=== PATIENT | male | born 1960 | race Caucasian/White ===

== ENCOUNTER 2022-01-29 10:22 | Inpatient (IN) ==
[2022-01-29 15:07] LABS: ABS Basophils 0.1 10^3/ul (0-0.2); ABS Eosinophils 0.1 10^3/ul (0-0.6); ABS Lymphocytes 2.1 10^3/ul (1.0-4.8); ABS Neutrophils 10.3 10^3/ul (1.5-7.7); Eosinophil % 0.7 %; Hematocrit 37 % (42-52); Hemoglobin 12.7 g/dL (14.0-18.0); Lymphocyte % 14.4 %; Mean Corpuscular HGB Conc 35 g/dL (31-36); Mean Corpuscular Hemoglobin 33 pg (27-31); Mean Corpuscular Volume 94 fL (80-94); Mean Platelet Volume 8.3 fL (7.4-10.4); Platelet Count 274 10^3/uL (150-450); Red Blood Count 3.88 10^6 /uL (4.18-5.48); Red Cell Distribution Width 13 % (10-15); White Blood Count 14.6 10^3/uL (3.5-10.8)
[2022-01-29 15:17] LABS: Urine Appearance Cloudy; Urine Bilirubin Negative (Negative); Urine Blood 3+ (Negative); Urine Color Amber; Urine Glucose Negative (Negative); Urine Ketones Trace (Negative); Urine Nitrite Negative (Negative); Urine Protein 2+(100 mg/dL) (Negative); Urine Specific Gravity 1.021 (1.002-1.030); Urine Urobilinogen Positive (Negative)
[2022-01-29 15:38] LABS: Urine Bacteria Absent (Absent); Urine Red Blood Cell 3+(>10/hpf) (Absent); Urine White Blood Cell 1+(6-10/hpf) (Absent)
[2022-01-29 16:40] LABS: Albumin 4.2 g/dL (3.2-5.2); Albumin/Globulin Ratio 1.4 (1-3); C Reactive Protein 166.9 mg/L (<8.01); Calcium 9.6 mg/dL (8.6-10.3); Globulin 3.1 g/dL (2-4); Potassium 3.9 mmol/L (3.5-5.0); Total Bilirubin 1.5 mg/dL (0.2-1.0); Total Protein 7.3 g/dL (6.4-8.9); eGFR CKD-EPI 106.2 (>60)
[2022-01-29] MEDS ORDERED: Iohexol 300 (CONTRAST) 10 ML SDV IV ONE (17:08)
[2022-01-29] MEDS ORDERED: Piperacillin/Tazobac ADVAN 3.375 GM in NS 0.9% 100 ml BAG 100 ML IV ONE (18:40)
[2022-01-29] MEDS ORDERED: Ondansetron 4 mg VIAL 2 MG/ML 2 ml VIAL IV PRN (19:26)
[2022-01-29] MEDS ORDERED: HYDROmorphone 0.5 MG/0.5 ML SYRINGE IV SLOW PU PRN (19:37)
[2022-01-30] MEDS: NS 0.9% 1000 ml BAG 1,000 ML IV SCH ×3 (00:15→19:49)
[2022-01-30] MEDS: Piperacillin/Tazobac ADVAN 3.375 GM in NS 0.9% 100 ml BAG 100 ML IV SCH ×3 (00:30→17:28)
[2022-01-30] MEDS ORDERED: Thiamine 100 MG/ML 2 ml VIAL (200 mg) IM ONE (01:43)
[2022-01-30] MEDS: Multivitamins/Minerals TAB PO SCH ×2 (02:25→08:18)
[2022-01-30 06:47] LABS: ABS Basophils 0.1 10^3/ul (0-0.2); ABS Eosinophils 0.1 10^3/ul (0-0.6); ABS Lymphocytes 2.2 10^3/ul (1.0-4.8); ABS Monocytes 1.5 10^3/ul (0-0.8); ABS Neutrophils 6.7 10^3/ul (1.5-7.7); Eosinophil % 1.3 %; Hematocrit 32 % (42-52); Hemoglobin 11.6 g/dL (14.0-18.0); Lymphocyte % 20.6 %; Mean Corpuscular HGB Conc 36 g/dL (31-36); Mean Corpuscular Hemoglobin 33 pg (27-31); Mean Corpuscular Volume 93 fL (80-94); Mean Platelet Volume 8.9 fL (7.4-10.4); Platelet Count 226 10^3/uL (150-450); Red Blood Count 3.48 10^6 /uL (4.18-5.48); Red Cell Distribution Width 13 % (10-15); White Blood Count 10.5 10^3/uL (3.5-10.8)
[2022-01-30 07:04] LABS: Calcium 8.9 mg/dL (8.6-10.3); eGFR CKD-EPI 104.8 (>60)
[2022-01-30] MEDS: KCL 20 MEQ/100 ML IVPREMIX 20 MEQ/100 ML BAG IV SCH ×3 (09:07→13:41)
[2022-01-31] MEDS: Piperacillin/Tazobac ADVAN 3.375 GM in NS 0.9% 100 ml BAG 100 ML IV SCH ×3 (01:05→19:56)
[2022-01-31] MEDS: NS 0.9% 1000 ml BAG 1,000 ML IV SCH (03:49)
[2022-01-31 06:35] LABS: ABS Basophils 0.1 10^3/ul (0-0.2); ABS Eosinophils 0.1 10^3/ul (0-0.6); ABS Lymphocytes 1.9 10^3/ul (1.0-4.8); ABS Monocytes 1.4 10^3/ul (0-0.8); ABS Neutrophils 9.2 10^3/ul (1.5-7.7); Eosinophil % 1.2 %; Hematocrit 31 % (42-52); Hemoglobin 10.7 g/dL (14.0-18.0); Lymphocyte % 15.1 %; Mean Corpuscular HGB Conc 34 g/dL (31-36); Mean Corpuscular Hemoglobin 32 pg (27-31); Mean Corpuscular Volume 95 fL (80-94); Mean Platelet Volume 8.3 fL (7.4-10.4); Platelet Count 236 10^3/uL (150-450); Red Cell Distribution Width 12 % (10-15); White Blood Count 12.8 10^3/uL (3.5-10.8)
[2022-01-31 07:08] LABS: Calcium 8.5 mg/dL (8.6-10.3); Potassium 3.4 mmol/L (3.5-5.0); eGFR CKD-EPI 105.8 (>60)
[2022-01-31] MEDS: Multivitamins/Minerals TAB PO SCH (07:32)
[2022-01-31] MEDS: KCL 20 MEQ/100 ML IVPREMIX 20 MEQ/100 ML BAG IV SCH ×2 (15:16→19:11)
[2022-01-31] MEDS: D5W 1/2 NS KCl 20 meq 1000 ml 1,000 ML IV SCH (16:25)
[2022-02-01] MEDS: Piperacillin/Tazobac ADVAN 3.375 GM in NS 0.9% 100 ml BAG 100 ML IV SCH ×3 (04:28→20:57)
[2022-02-01 06:15] LABS: ABS Basophils 0.1 10^3/ul (0-0.2); ABS Eosinophils 0.1 10^3/ul (0-0.6); ABS Lymphocytes 2.1 10^3/ul (1.0-4.8); ABS Monocytes 1.2 10^3/ul (0-0.8); ABS Neutrophils 7.3 10^3/ul (1.5-7.7); Eosinophil % 1.2 %; Hematocrit 31 % (42-52); Hemoglobin 10.8 g/dL (14.0-18.0); Lymphocyte % 19.3 %; Mean Corpuscular HGB Conc 35 g/dL (31-36); Mean Corpuscular Hemoglobin 33 pg (27-31); Mean Corpuscular Volume 94 fL (80-94); Mean Platelet Volume 7.8 fL (7.4-10.4); Platelet Count 237 10^3/uL (150-450); Red Blood Count 3.31 10^6 /uL (4.18-5.48); Red Cell Distribution Width 12 % (10-15); White Blood Count 10.8 10^3/uL (3.5-10.8)
[2022-02-01 06:34] LABS: Calcium 8.4 mg/dL (8.6-10.3); Potassium 3.3 mmol/L (3.5-5.0); eGFR CKD-EPI 108.7 (>60)
[2022-02-01] MEDS: D5W 1/2 NS KCl 20 meq 1000 ml 1,000 ML IV SCH (06:34)
[2022-02-01] MEDS: Multivitamins/Minerals TAB PO SCH (08:51)
[2022-02-01] MEDS: KCL 20 MEQ/100 ML IVPREMIX 20 MEQ/100 ML BAG IV SCH ×2 (10:31→14:40)
[2022-02-02] MEDS: D5W 1/2 NS KCl 20 meq 1000 ml 1,000 ML IV SCH ×2 (03:04→16:05)
[2022-02-02] MEDS: Piperacillin/Tazobac ADVAN 3.375 GM in NS 0.9% 100 ml BAG 100 ML IV SCH ×3 (05:00→20:58)
[2022-02-02 05:18] LABS: Hematocrit 30 % (42-52); Hemoglobin 10.5 g/dL (14.0-18.0); Mean Corpuscular HGB Conc 35 g/dL (31-36); Mean Corpuscular Hemoglobin 33 pg (27-31); Mean Corpuscular Volume 93 fL (80-94); Mean Platelet Volume 8.2 fL (7.4-10.4); Platelet Count 246 10^3/uL (150-450); Red Blood Count 3.19 10^6 /uL (4.18-5.48); Red Cell Distribution Width 13 % (10-15); White Blood Count 11.7 10^3/uL (3.5-10.8)
[2022-02-02 05:19] LABS: ABS Basophils 0.1 10^3/ul (0-0.2); ABS Eosinophils 0.1 10^3/ul (0-0.6); ABS Lymphocytes 2.4 10^3/ul (1.0-4.8); ABS Monocytes 1.7 10^3/ul (0-0.8); ABS Neutrophils 7.3 10^3/ul (1.5-7.7)
[2022-02-02 05:37] LABS: Calcium 8.6 mg/dL (8.6-10.3); Potassium 3.2 mmol/L (3.5-5.0); eGFR CKD-EPI 105.3 (>60)
[2022-02-02 08:27] LABS: C Reactive Protein 112.04 mg/L (<8.01)
[2022-02-02] MEDS: Multivitamins/Minerals TAB PO SCH (09:13)
[2022-02-02] MEDS: Potassium Chlor 20 meq TAB.ER PO SCH (09:14)
[2022-02-02 16:48] LABS: Body Fluid Appearance Cloudy; Body Fluid Color Yellow; Body Fluid Source Synovial Fluid
[2022-02-02 17:03] LABS: Body Fluid WBC 18354 /mcL
[2022-02-02 20:40] LABS: Body Fluid Mono 7 %; Body Fluid NRBC 6; Body Fluid Total Cells Counted 200
[2022-02-03] MEDS: D5W 1/2 NS KCl 20 meq 1000 ml 1,000 ML IV SCH (04:46)
[2022-02-03] MEDS: Piperacillin/Tazobac ADVAN 3.375 GM in NS 0.9% 100 ml BAG 100 ML IV SCH ×2 (04:46→13:16)
[2022-02-03 06:05] LABS: ABS Basophils 0.1 10^3/ul (0-0.2); ABS Eosinophils 0.2 10^3/ul (0-0.6); ABS Lymphocytes 2.2 10^3/ul (1.0-4.8); ABS Monocytes 1.3 10^3/ul (0-0.8); ABS Neutrophils 7.4 10^3/ul (1.5-7.7); Eosinophil % 1.4 %; Hematocrit 32 % (42-52); Lymphocyte % 19.5 %; Mean Corpuscular HGB Conc 35 g/dL (31-36); Mean Corpuscular Hemoglobin 32 pg (27-31); Mean Corpuscular Volume 93 fL (80-94); Mean Platelet Volume 8.1 fL (7.4-10.4); Platelet Count 271 10^3/uL (150-450); Red Blood Count 3.42 10^6 /uL (4.18-5.48); Red Cell Distribution Width 12 % (10-15); White Blood Count 11.1 10^3/uL (3.5-10.8)
[2022-02-03 06:20] LABS: Calcium 9.2 mg/dL (8.6-10.3); Potassium 3.6 mmol/L (3.5-5.0); eGFR CKD-EPI 103.9 (>60)
[2022-02-03 07:47] VITALS: BP 145/78
[2022-02-03] MEDS: Multivitamins/Minerals TAB PO SCH (09:16)
[2022-02-03] MEDS: Potassium Chlor 20 meq TAB.ER PO SCH (09:16)
[2022-02-05 13:34] LABS: B. garinii/B. afzellii PCR Negative (Negative); Lyme Disease Source SYNOVIAL FLUID
== END 2022-02-03 14:10 | disposition home or self-care (01) | DRG 244 ==
LOC: ED 10:22 → EDHOLD 19:26 → MED 22:55 → SSU 02-01 15:40
PROVIDERS: ADMIT Surgery; ATTEND Surgery